=== PATIENT | male | born 1955 ===

== ENCOUNTER 2024-08-30 06:52 | Day surgery (SDC) | payer OTHER ==
[2024-08-30] MEDS ORDERED: MIDAZOLAM HCL 2 MG/2 ML VIAL IV ONE (10:00)
[2024-08-30] MEDS ORDERED: fentaNYL CITRATE 50 MCG/ML AMPUL IV PUSH ONE (10:00)
[2024-08-30] MEDS ORDERED: DIPHENHYDRAMINE HCL 50 MG/ML VIAL 1ML IV ONE (10:00)
== END 2024-08-30 12:20 | disposition home or self-care (01) ==
LOC: AMB-ENDOS 06:52
PROVIDERS: ATTEND Colon & Rectal Surgery
DX: K63.5 Polyp of colon (principal); K63.89 Other specified diseases of intestine; K57.30 Diverticulosis of large intestine without perforation or abscess without bleeding; Z88.2 Allergy status to sulfonamides; Z91.041 Radiographic dye allergy status